=== PATIENT | male | born 1965 | race Caucasian/White ===

== ENCOUNTER 2020-10-03 01:13 | Emergency (ER) | payer OTHER ==
[2020-10-03 05:11] LABS: HEMOGLOBIN 14.2 gm/dl (14.0-17.5); RED BLOOD COUNT 4.61 M/UL (4.20-5.50); WHITE BLOOD COUNT 3.8 K/UL (4.5-11.0)
[2020-10-03 05:32] LABS: BUN/CREATININE RATIO 17 (0-10)
[2020-10-03] MEDS ORDERED: IBUPROFEN800 MG PO (06:27)
[2020-10-03] MEDS ORDERED: CYCLOBENZAPRINE5 MG PO (06:27)
== END 2020-10-03 06:48 | disposition home or self-care (01) ==
LOC: ER1 01:13
PROVIDERS: Physician Assistant
DX: N50.811 Right testicular pain (principal); M54.5 Low back pain
CPT/HCPCS: 76870; 80053; 81001; 83690; 85025; 93005; 99284